=== PATIENT | female | born 2000 | race African-American/Black ===

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

== ENCOUNTER 2021-01-20 01:14 | Emergency (ER) | payer OTHER ==
[~2021-01-20] VITALS: Ht 162.6 cm; Wt 86.3 kg
[2021-01-20] MEDS ORDERED: IV NORMAL SALINE 1000ML BAG 1,000 ML IV SCH (02:15)
[2021-01-20] MEDS ORDERED: ONDANSETRON ODT 4 MG TAB.RAPDIS. PO ONE (03:00)
[2021-01-20] MEDS ORDERED: ONDA4TAB7 PO (03:02)
--- NOTE | 2021-01-20 03:03 | PHYS DOC ---
Past Medical History Past Medical History: No Pertinent History Additional Past Medical Histor: hernia, ADHD Past Surgical History: No Surgical History Additional Past Surgical Histo: tubes in ear, HERNIA REPAIR, ADDENOIDS REMOVED Smoking Status: Never Smoker Alcohol Use: None Drug Use: None Adult General Chief Complaint Chief Complaint: ABDOMINAL PAIN HPI HPI Patient is a 20 year old female with no significant past medical history presenting to emergency department for new onset of abdominal pain and vomiting. Patient states she woke up this morning and had 4 episodes of vomiting nonbloody nonbilious that occurred within a 2-hour. Patient states that after this she started having improvement was able to drink some but presenting the emergency department today because she had worsening sensation of generalized abdominal pain and aching. Denies any fevers, chills, diarrhea, chest pain or shortness of breath. Review of Systems Review of Systems Constitutional: Denies fever or chills [] Eyes: Denies change in visual acuity, redness, or eye pain [] HENT: Denies nasal congestion or sore throat [] Respiratory: Denies cough or shortness of breath [] Cardiovascular: No additional information not addressed in HPI [] GI: Denies abdominal pain, nausea, vomiting, bloody stools or diarrhea [] : Denies dysuria or hematuria [] Musculoskeletal: Denies back pain or joint pain [] Integument: Denies rash or skin lesions [] Neurologic: Denies headache, focal weakness or sensory changes [] Endocrine: Denies polyuria or polydipsia [] All other systems were reviewed and found to be within normal limits, except as documented in this note. Current Medications Current Medications Current Medications Medications (Trade) Dose Ordered Sig/Lesli Start Time Stop Time Status Last Admin Dose Admin Ondansetron HCl (Zofran Odt) 4 mg 1X ONCE 01/20/21 03:00 01/20/21 03:01 Sodium Chloride 1,000 ml @ 1,000 mls/hr Q1H 01/20/21 02:15 01/20/21 03:14 Allergies Allergies Allergies Coded Allergies Type Severity Reaction Last Updated Verified No Known Drug Allergies 03/07/14 No Physical Exam Physical Exam Constitutional: Well developed, well nourished, no acute distress, non-toxic appearance. [] HENT: Normocephalic, atraumatic, bilateral external ears normal, oropharynx moist, no oral exudates, nose normal. [] Eyes: PERRLA, EOMI, conjunctiva normal, no discharge. [] Neck: Normal range of motion, no tenderness, supple, no stridor. [] Cardiovascular:Heart rate regular rhythm, no murmur [] Lungs & Thorax: Bilateral breath sounds clear to auscultation [] Abdomen: Bowel sounds normal, soft, no tenderness, no masses, no pulsatile masses. [] Skin: Warm, dry, no erythema, no rash. [] Back: No tenderness, no CVA tenderness. [] Extremities: No tenderness, no cyanosis, no clubbing, ROM intact, no edema. [] Neurologic: Alert and oriented X 3, normal motor function, normal sensory function, no focal deficits noted. [] Psychologic: Affect normal, judgement normal, mood normal. [] Current Patient Data Vital Signs Vital Signs Date Time Temp Pulse Resp B/P (MAP) Pulse Ox O2 Delivery O2 Flow Rate FiO2 01/20/21 01:25 98.2 100 18 127/72 (90) 99 Room Air 98.2 Lab Values Laboratory Tests Test 01/20/21 01:28 POC Urine HCG, Qualitative Hcg negative (Negative) EKG EKG [] Radiology/Procedures Radiology/Procedures [] Course & Med Decision Making Course & Med Decision Making Pertinent Labs and Imaging studies reviewed. (See chart for details) 20F presenting with new onset of nausea and vomiting most consistent with acute gastroenteritis. Attempted to obtain labs with the patient refusing any nee dles, blood draw is only asking for urine test and antinausea medication. No significant tenderness on exam. Urine test negative and patient was given Zofran. Patient is requesting to be discharged Dragon Disclaimer Dragon Disclaimer This electronic medical record was generated, in whole or in part, using a voice recognition dictation system. Departure Departure Impression: Primary Impression: Acute gastroenteritis Disposition: 01 DC HOME SELF CARE/HOMELESS Condition: GOOD Referrals: NO PCP (PCP) Patient Instructions: Nausea and Vomiting Additional Instructions: EMERGENCY DEPARTMENT GENERAL DISCHARGE INSTRUCTIONS Thank you for coming to [facility] Emergency Department (ED) today and trusting us with you care. We trust that you had a positive experience in our Emergency Department. If you wish to speak to the department management, you may call the Director at [phone]. YOUR FOLLOW UP INSTRUCTIONS ARE FOLLOWS: 1. Do you have a private Doctor? If you do not have a private doctor, please ask for a resource list of physicians or clinics that may be able to assist you with follow up care. 2. The Emergency Physicain has interpreted your x-rays. The X-Ray specialist will also review them. If there is a change in the findings, you will be notified in 48 hours when at all possible. 3. A lab test or culture has been done, your results will be reviewed and you will be notified if you need a change in treatment. ADDITIONAL INSTRUCTIONS AND INFORMATION: 1. Your care today has been supervised by a physician who is specially trained in emergency care. Many problems require more than one evaluation for a complete diagnosis and treatment. We recommend that you schedule your follow up appointment as recommended to ensure complete treatment of you illness or injury. If you are unable to obtain follow up care and continue to have a problem, or if your condition worsens, we recommend that you return to the ED. 2. We are not able to safely determine your condition over the phone nor are we able to give sound medical advice over the phone. For these safety reasons, if you call for medical advice we will ask you to come to the ED for further evaluation. 3. If you have any questions regarding these discharge instructions please call the ED at [phone]. SAFETY INFORMATION: In the interest of safety, wellness, and injury prevention; we encourage you to wear your sealbelt, if you smoke; quite smoking, and we encourage family to use a protective helmet for bicycling and other sporting events that present an increased risk for head injury. IF YOUR SYMPTOMS WORSEN OR NEW SYMPTOMS DEVELOP, OR YOU HAVE CONCERNS ABOUT YOUR CONDITION; OR IF YOUR CONDITION WORSENS WHILE YOU ARE WAITING FOR YOUR FOLLOW UP APPOINTMENT; EITHER CONTACT YOUR PRIMARY CARE DOCTOR, THE PHYSICIAN WHOSE NAME AND NUMBER YOU WERE GIVEN, OR RETURN TO THE ED IMMEDIATELY. Scripts Ondansetron Hcl (ZOFRAN) 4 Mg Tablet 1 TAB PO PRN Q6-8HRS for nausea, #12 TAB Prov: NICHOLE RITTER MD 01/20/21 NICHOLE RITTER MD Jan 20, 2021 03:02
[2021-01-20 03:10] VITALS: BP 122/65
== END 2021-01-20 03:10 | disposition home or self-care (01) ==
LOC: ER 01:14
DX: K52.9 Noninfective gastroenteritis and colitis, unspecified (principal); R10.84 Generalized abdominal pain; R11.2 Nausea with vomiting, unspecified; R20.2 Paresthesia of skin; F90.9 Attention-deficit hyperactivity disorder, unspecified type; Z98.890 Other specified postprocedural states
CPT/HCPCS: 81025; 99283

== ENCOUNTER 2021-05-28 01:17 | Emergency (ER) | payer OTHER ==
[~2021-05-28 01:17] MED LIST changes: +ONDA4TAB7 PO
== END 2021-05-28 03:28 | disposition left against medical advice (07) ==
LOC: ER 01:17
DX: O26.891 Other specified pregnancy related conditions, first trimester (principal); R10.32 Left lower quadrant pain; Z3A.01 Less than 8 weeks gestation of pregnancy
CPT/HCPCS: 81025; 99282

== ENCOUNTER → 2021-07-04 | Outpatient (CLI) | payer OTHER ==
[2021-07-04 13:58] LABS: HEMATOCRIT 36.8 % (36.0-47.0); HEMOGLOBIN 12.1 g/dL (12.0-15.5); MEAN CORPUSCULAR HEMOGLOBIN 28 pg (25-35); MEAN CORPUSCULAR HGB CONC 33 g/dL (31-37); MEAN CORPUSCULAR VOLUME 85 fL (79-100); PLATELET COUNT 438 x10^3/uL (140-400); RED BLOOD COUNT 4.34 x10^6/uL (3.50-5.40); RED CELL DISTRIBUTION WIDTH 15.5 % (11.5-14.5)
[2021-07-05 17:10] LABS: RUBELLA IGG ANTIBODY 1.54 index (Immune >0.99)
== END ==
LOC: LAB 13:02
PROVIDERS: ATTEND Obstetrics & Gynecology
DX: Z34.91 Encounter for supervision of normal pregnancy, unspecified, first trimester (principal)
CPT/HCPCS: 81220; 84443; 84702; 85027; 85660; 86592; 86703; 86762; 86787; 86803; 86850; 86900; 86901; 87340

== ENCOUNTER → 2021-07-12 | Outpatient (CLI) | payer OTHER ==
--- NOTE | 2021-07-12 08:54 | RAD ---
EXAM: Obstetrics sonogram. HISTORY: Unsure dates. TECHNIQUE: Sonographic imaging of the pelvis was performed. COMPARISON: None. FINDINGS: Note is made that the name on the worksheet submitted for the exam is incorrect. The exam i s performed on a patient DAWN DEE. The uterus measures 7.0 x 5.3 x 4.7 cm. The uterus is retroverted. There is an intrauterine gestation al sac with pole and yolk sac. The mean sac diameter is 1.5 cm, corresponding with a gestationa l age of 6 weeks and 2 days. The crown-rump length is 2.5 mm, corresponding with a gestational age of 5 weeks and 6 days. The estimated gestational age patient combined measurements is 6 weeks and 1 day and the estimated due date is 03/06/2022. There is cardiac activity with a heart rate of 93 bpm. This is normal for early gestational age. The gestational sac is normal in configuration and location. The yolk sac is normal in size and confi guration. The maternal ovaries are normal in size and demonstrate normal blood flow. There is a 1.7 c m left corpus luteum cyst. There is no pelvic free fluid. IMPRESSION: 1. Single intrauterine fetus with an estimated gestational age based on combined mean sac diameter an d crown-rump length measurements of 6 weeks and 1 day. There is normal early cardiac activity. 2. 1.7 cm left corpus luteum cyst. Electronically signed by: Alda Rae MD (07/12/2021 8:51 AM) [id number]
== END ==
LOC: US 07:08
PROVIDERS: ATTEND Obstetrics & Gynecology
DX: O34.81 Maternal care for other abnormalities of pelvic organs, first trimester (principal); N83.12 Corpus luteum cyst of left ovary; O26.891 Other specified pregnancy related conditions, first trimester; N85.4 Malposition of uterus; Z3A.01 Less than 8 weeks gestation of pregnancy
CPT/HCPCS: 76801

== ENCOUNTER → 2021-10-21 | Outpatient (CLI) | payer OTHER ==
--- NOTE | 2021-10-22 15:26 | RAD ---
OB ultrasound greater than 14 weeks 10/21/2021 Clinical History: survey. Technique: A real-time ultrasound examination of the gravid uterus was performed. Multiple images wer e obtained. Findings: Comparison study is dated 07/12/2021 There is a single living IUP. The fetus is in a breech position. cardiac and somatic activity is seen. The heart rate is 139 beats per minutes. The maternal cervix is closed. It measures 6 cm in length. The placenta is posterior. No abnormality is seen. The amniotic fluid volume is within normal limits. Neither maternal ovary is visualized. The following measurements were obtained: BPD 4.76cm 20 weeks 3 days HC 18.0 cm 20weeks 3 days AC 15.6 cm 20weeks 5 days FL 3.36 cm 20 weeks 4 days The estimated gestational age by ultrasound is 20 weeks 4 days plus or minus a standard deviation of 10 days. The estimated date of delivery by ultrasound is 03/06/2022. Since the previous examination th ere has been appropriate growth. No abnormality is seen. Specifically the stomach, bladder, kidneys, 3 vessel cord and cor d insertion, four-chamber heart, cisterna magna, cerebellum, nose/mouth, spine and extremities are well-visualized and within normal limits. Impression: Single living IUP with an estimated gestational age by ultrasound of 20 weeks4 days +/- a standard deviation of 10 days. Since previous examination has been appropriate interval growth . Electronically signed by: Neel Cordero MD (10/22/2021 3:23 PM) [id number]
== END ==
LOC: US 15:34
PROVIDERS: ATTEND Obstetrics & Gynecology
DX: O09.72 Supervision of high risk pregnancy due to social problems, second trimester (principal); Z3A.20 20 weeks gestation of pregnancy
CPT/HCPCS: 76805

== ENCOUNTER 2021-10-24 02:21 | Observation (INO) | payer OTHER ==
[2021-10-24] MEDS ORDERED: IV RINGERS,LACTATED 1000ML 1,000 ML IV PRN (02:30)
[2021-10-24 02:58] LABS: BILIRUBIN,URINE NEGATIVE (NEG); CLARITY,URINE CLEAR; COLOR,URINE YELLOW; NITRITE,URINE NEGATIVE (NEG); PROTEIN,URINE NEGATIVE (NEG-TRACE); UROBILINOGEN,URINE 0.2 mg/dL (0.2 mg/dL)
[2021-10-24 03:04] LABS: BACTERIA,URINE 0 /HPF (0-FEW); BARBITURATES NEG (NEG); BENZODIAZEPINES NEG (NEG); CANNABINOIDS NEG (NEG); COCAINE NEG (NEG); METHADONE NEG (NEG); OPIATES NEG (NEG); PHENCYCLIDINE NEG (NEG); RBC,URINE OCC /HPF (0-2); WBC,URINE OCC /HPF (0-4)
[2021-10-24 03:05] LABS: AMPHETAMINE/METHAMPHETAMINE NEG (NEG)
[2021-10-24 03:45] LABS: BASO # 0.1 x10^3/uL (0.0-0.2); BASO % 0 % (0-3); EOS # 0.1 x10^3/uL (0.0-0.7); EOS % 0 % (0-3); HEMATOCRIT 34.1 % (36.0-47.0); HEMOGLOBIN 11.3 g/dL (12.0-15.5); LYMPH # 6.5 x10^3/uL (1.0-4.8); LYMPH % 35 % (24-48); MEAN CORPUSCULAR HEMOGLOBIN 27 pg (25-35); MEAN CORPUSCULAR HGB CONC 33 g/dL (31-37); MEAN CORPUSCULAR VOLUME 82 fL (79-100); MONO # 1.2 x10^3/uL (0.0-1.1); MONO % 6 % (0-9); NEUT # 10.8 x10^3/uL (1.8-7.7); NEUT % 58 % (31-73); PLATELET COUNT 503 x10^3/uL (140-400); RED BLOOD COUNT 4.17 x10^6/uL (3.50-5.40); RED CELL DISTRIBUTION WIDTH 14.3 % (11.5-14.5); WHITE BLOOD COUNT 18.6 x10^3/uL (4.0-11.0)
[2021-10-24 04:29] LABS: ALBUMIN 2.9 g/dL (3.4-5.0); ALBUMIN/GLOBULIN RATIO 0.7 (1.0-1.7); CREATININE 0.5 mg/dL (0.6-1.0); GFR 190.3; POTASSIUM 3.6 mmol/L (3.5-5.1); TOTAL BILIRUBIN 0.2 mg/dL (0.2-1.0); TOTAL PROTEIN 7.3 g/dL (6.4-8.2); URIC ACID 3.2 mg/dL (2.6-6.0)
--- NOTE | 2021-10-24 05:29 | NUR ---
[employer] in 384 would not pull up so medication (LR) had to be manually entered with ID band checked and verbal confirmation of right patient.
== END 2021-10-24 05:21 | disposition home or self-care (01) ==
LOC: 3 SO LND 02:21
PROVIDERS: ADMIT Obstetrics & Gynecology; ATTEND Obstetrics & Gynecology
DX: O42.912 Preterm premature rupture of membranes, unspecified as to length of time between rupture and onset of labor, second trimester (principal); Z3A.21 21 weeks gestation of pregnancy; Z79.899 Other long term (current) drug therapy
CPT/HCPCS: 36415; 59025; 80053; 80307; 81001; 83615; 84156; 84550; 85025; G0378; G0379; J7120

== ENCOUNTER 2021-12-06 14:15 | Observation (INO) | payer OTHER ==
[2021-12-06] MEDS ORDERED: IV RINGERS,LACTATED 1000ML 1,000 ML IV PRN (14:30)
[2021-12-06 14:45] LABS: BILIRUBIN,URINE NEGATIVE (NEG); CLARITY,URINE CLEAR; COLOR,URINE YELLOW; NITRITE,URINE NEGATIVE (NEG); PROTEIN,URINE NEGATIVE (NEG-TRACE)
[2021-12-06 15:15] LABS: AMNIO PT NEGATIVE
[2021-12-06 15:36] LABS: BACTERIA,URINE FEW /HPF (0-FEW); RBC,URINE 0 /HPF (0-2); WBC,URINE RARE /HPF (0-4)
== END 2021-12-06 15:56 | disposition home or self-care (01) ==
LOC: 3 SO LND 14:15
PROVIDERS: ADMIT Obstetrics & Gynecology; ATTEND Obstetrics & Gynecology
DX: O42.912 Preterm premature rupture of membranes, unspecified as to length of time between rupture and onset of labor, second trimester (principal); Z3A.27 27 weeks gestation of pregnancy
CPT/HCPCS: 36415; 59025; 81001; 84112; G0378; G0379

== ENCOUNTER 2022-01-19 11:59 | Observation (INO) | payer OTHER ==
[2022-01-19] MEDS ORDERED: IV RINGERS,LACTATED 1000ML 1,000 ML IV SCH (12:45)
[2022-01-19] MEDS ORDERED: IV RINGERS,LACTATED 1000ML 1,000 ML IV ONE (13:15)
[2022-01-19] MEDS ORDERED: hydrOXYzine 25 MG TABLET PO PRN (13:15)
[2022-01-19 13:32] LABS: CALCIUM 8.7 mg/dL (8.5-10.1); CREATININE 0.5 mg/dL (0.6-1.0); GFR 190.3
--- NOTE | 2022-01-19 13:33 | PDOC1 ---
MAXILLOFACIAL PROSTHODONTIST H&P Date of Admission: Date of Admission: Jan 19, 2022 at 11:59 History of Present Illness: [id number] presents with complaints of intermittent lower abdominal/pelvic discomfort/pressure. Denies complications with to date. History of preeclampsia with subsequent IOL @ 37 weeks. Denies history of PTL. No dysuria, urgency, or frequency. No vulvovaginal itching/irritation. No abnormal vaginal discharge. No recent IC. Good movement. On further questioning, pt. reports intermittent mild GONZALEZ, relieved with APAP/rest. Denies visual disturbances, no RUQ pain. Otherwise denies complaints. Past Medical History: Cardiovascular: No pertinent hx, Other (Preeclampsia in prior ) Pulmonary: No pertinent hx GI: No pertinent hx Heme/Onc: No pertinent hx Hepatobiliary: No pertinent hx Psych: No pertinent hx Rheumatologic: No pertinent hx Infectious disease: No pertinent hx ENT: No pertinent hx Renal/: No pertinent hx Endocrine: No pertinent hx Dermatology: No pertinent hx Grav: 2 Past Surgical History: Negative Social History: Smoke: No ALCOHOL: none Allergies: Coded Allergies: No Known Drug Allergies (Unverified , 03/07/14) Physical Exam: PE: GENERAL: No apparent distress. Alert and oriented. HEENT: Head normocephalic, atraumatic. NECK: Supple LUNGS: Clear to auscultation. HEART: RRR, S1, S2 present, pulses intact ABDOMEN: Soft, positive bowel sounds. EXTREMITIES: No cyanosis or edema. NEUROLOGIC: Normal speech, normal tone PSYCHIATRIC: Normal affect, normal mood. SKIN: No ulceration. Assessment & Plan: FHR 135, moderate variability, + accels, no decels. TOCO - irregular mild UC, SVE 1//. Initial pressure mild range, PIH labs pending. BMZ as a pre caution. IV hydrate, PO vistaril, recheck SVE in 2 hours. Anticipate d/c home pending no cervical change. Not presently in active labor. JUDY SMITH CNM Jan 19, 2022 13:33
[2022-01-19 13:35] LABS: BASO % 0 % (0-3); EOS % 0 % (0-3); HEMATOCRIT 31.3 % (36.0-47.0); LYMPH # 4.4 x10^3/uL (1.0-4.8); LYMPH % 30 % (24-48); MEAN CORPUSCULAR HEMOGLOBIN 25 pg (25-35); MEAN CORPUSCULAR HGB CONC 32 g/dL (31-37); MEAN CORPUSCULAR VOLUME 79 fL (79-100); MONO # 0.9 x10^3/uL (0.0-1.1); MONO % 6 % (0-9); NEUT # 9.2 x10^3/uL (1.8-7.7); NEUT % 63 % (31-73); PLATELET COUNT 444 x10^3/uL (140-400); RED BLOOD COUNT 3.98 x10^6/uL (3.50-5.40); RED CELL DISTRIBUTION WIDTH 16.8 % (11.5-14.5); WHITE BLOOD COUNT 14.6 x10^3/uL (4.0-11.0)
[2022-01-19 13:39] LABS: ALBUMIN 2.8 g/dL (3.4-5.0); ALBUMIN/GLOBULIN RATIO 0.7 (1.0-1.7); TOTAL BILIRUBIN 0.3 mg/dL (0.2-1.0); TOTAL PROTEIN 6.7 g/dL (6.4-8.2); URIC ACID 3.8 mg/dL (2.6-6.0)
[2022-01-19] MEDS ORDERED: BETAMET ACET&NA PHOS 30 MG/5 ML VIAL. IM SCH (14:00)
[2022-01-19 14:04] LABS: CREATININE,RANDOM URINE 69.4 mg/dL (Not Establ.)
[2022-01-19] MEDS ORDERED: HYDR50CA PO (15:04)
== END 2022-01-19 16:20 | disposition home or self-care (01) ==
LOC: INTOOBSV 11:59 → 3 SO LND 11:59
PROVIDERS: ADMIT Obstetrics & Gynecology; ATTEND Obstetrics & Gynecology
DX: O62.9 Abnormality of forces of labor, unspecified (principal); O99.891 Other specified diseases and conditions complicating pregnancy; M54.9 Dorsalgia, unspecified; R10.30 Lower abdominal pain, unspecified; R10.2 Pelvic and perineal pain; Z3A.33 33 weeks gestation of pregnancy
CPT/HCPCS: 36415; 59025; 80053; 82570; 83615; 84156; 84550; 85025; 96372; G0378; G0379; J0702; J7120; 96360; 96361

== ENCOUNTER 2022-01-20 15:58 | Observation (INO) | payer OTHER ==
[~2022-01-20 15:58] MED LIST changes: +HYDR50CA PO
[2022-01-20] MEDS ORDERED: IV RINGERS,LACTATED 1000ML 1,000 ML IV SCH (16:15)
[2022-01-20] MEDS ORDERED: BETAMET ACET&NA PHOS 30 MG/5 ML VIAL. IM ONE (16:30)
== END 2022-01-20 16:30 | disposition home or self-care (01) ==
LOC: 3 SO LND 15:58
PROVIDERS: ADMIT Obstetrics & Gynecology; ATTEND Obstetrics & Gynecology
DX: O36.8330 Maternal care for abnormalities of the fetal heart rate or rhythm, third trimester, not applicable or unspecified (principal); Z3A.33 33 weeks gestation of pregnancy
CPT/HCPCS: 59025; 96372; J0702; G0379

== ENCOUNTER 2022-02-12 06:04 | Inpatient (IN) | payer OTHER ==
[~2022-02-12] VITALS: Ht 162.6 cm; Wt 119.0 kg
[2022-02-12] MEDS ORDERED: OXYTOCIN 30 UNIT/500 ML PREMIX 500 ML IV PRN ×3 (06:15→20:00)
[2022-02-12] MEDS ORDERED: 0.9 % SODIUM CHLORIDE 10 ML DISP.SYRIN. IV PRN ×2 (06:15→20:00)
[2022-02-12] MEDS ORDERED: LIDOCAINE 1% PF 30 ML VIAL. INJ PRN (06:15)
[2022-02-12] MEDS ORDERED: TERBUTALINE 1 MG/ML VIAL. SQ PRN (06:15)
[2022-02-12] MEDS ORDERED: ACETAMINOPHEN 325 MG TABLET. PO PRN (06:15)
[2022-02-12 06:25] VITALS: BP 148/67
[2022-02-12] MEDS: IV RINGERS,LACTATED 1000ML 1,000 ML IV SCH ×3 (06:54→17:11)
[2022-02-12 07:11] LABS: BASO # 0.1 x10^3/uL (0.0-0.2); BASO % 0 % (0-3); EOS # 0.1 x10^3/uL (0.0-0.7); EOS % 1 % (0-3); HEMATOCRIT 32.7 % (36.0-47.0); HEMOGLOBIN 10.2 g/dL (12.0-15.5); LYMPH # 4.7 x10^3/uL (1.0-4.8); LYMPH % 32 % (24-48); MEAN CORPUSCULAR HEMOGLOBIN 24 pg (25-35); MEAN CORPUSCULAR HGB CONC 31 g/dL (31-37); MEAN CORPUSCULAR VOLUME 78 fL (79-100); MONO % 7 % (0-9); NEUT # 9.1 x10^3/uL (1.8-7.7); NEUT % 61 % (31-73); PLATELET COUNT 458 x10^3/uL (140-400); RED BLOOD COUNT 4.19 x10^6/uL (3.50-5.40); RED CELL DISTRIBUTION WIDTH 17.1 % (11.5-14.5); WHITE BLOOD COUNT 14.9 x10^3/uL (4.0-11.0)
[2022-02-12 07:25] LABS: ALBUMIN 2.8 g/dL (3.4-5.0); ALBUMIN/GLOBULIN RATIO 0.6 (1.0-1.7); CALCIUM 8.6 mg/dL (8.5-10.1); CREATININE 0.5 mg/dL (0.6-1.0); GFR 190.3; POTASSIUM 3.4 mmol/L (3.5-5.1); TOTAL BILIRUBIN 0.3 mg/dL (0.2-1.0); TOTAL PROTEIN 7.5 g/dL (6.4-8.2); URIC ACID 3.8 mg/dL (2.6-6.0)
[2022-02-12 07:55] LABS: CREATININE,RANDOM URINE 100.8 mg/dL (Not Establ.)
[2022-02-12 08:16] LABS: BACTERIA,URINE 0 /HPF (0-FEW); RBC,URINE 0 /HPF (0-2); WBC,URINE 0 /HPF (0-4)
--- NOTE | 2022-02-12 08:52 | PDOC1 ---
AIR QUALITY TECHNICIAN H&P Date of Admission: Date of Admission: Feb 12, 2022 at 06:04 History of Present Illness: EDC: 03/06/22 LMP: 05/30/21 21y @ 36.6 by L=6 presents for indxn of labor. At the pts initial visit at 5wks she was noted to have a mild BP. The pt has not had any issues with BP since until around 34wks. Her BPs have been mild ever since. On 01/19/22, she presented to L&D. A PIH eval was performed which revealed nml labs and a urine Pr/Cr of 0.218. The pt started on a course of BMTZ during this visit. It is unclear if she has cHTN or GHTN. With her h/o preeclampsia with her first , it was felt to be the safest option to move toward indxn, especially with the pts more frequent HAs. The pt reports having a GONZALEZ last night, but it resolved after Tylenol. She does reports some epigastric pain, but this may be GERD. PMH: Asthma, ADHD PSH: Denies Meds: Vistaril, PNV, Colace All: NKDA OBHx: 38wk (induced for preeclampsia, ?oligo) SH: No tob, no EtOH FH: noncontributory Past Medical History: Cardiovascular: No pertinent hx, Other Pulmonary: No pertinent hx GI: No pertinent hx Heme/Onc: No pertinent hx Hepatobiliary: No pertinent hx Psych: No pertinent hx Rheumatologic: No pertinent hx Infectious disease: No pertinent hx Renal/: No pertinent hx Endocrine: No pertinent hx Social History: ALCOHOL: none Medications: Meds: Current Medications Medications (Trade) Dose Ordered Sig/Lesli Route PRN Reason Start Time Stop Time Status Last Admin Dose Admin Ringer's Solution 1,000 ml @ 125 mls/hr Q8H IV 02/12/22 06:15 02/12/22 06:54 Oxytocin 500 ml @ 0 mls/hr CONT PRN IV SEE I/O RECORD 02/12/22 06:15 02/12/22 07:34 Allergies: Coded Allergies: No Known Drug Allergies (Unverified , 03/07/14) Physical Exam: PE: GENERAL: No apparent distress. Alert and oriented. HEENT: Head normocephalic, atraumatic. NECK: Supple LUNGS: Clear to auscultation. HEART: RRR, S1, S2 present, pulses intact ABDOMEN: Soft, positive bowel sounds. EXTREMITIES: No cyanosis or edema. NEUROLOGIC: Normal speech, normal tone PSYCHIATRIC: Normal affect, normal mood. SKIN: No ulceration. FHT: 140s acels/no decels/mLTV [place]: 8-10 min SVE: 1-2/60/-2 Labs: Laboratory Tests Test 02/12/22 06:20 02/12/22 06:30 Urine Collection Type Unknown Urine Color (Auto) Light yellow Urine Turbidity Clear Urine pH (Auto) 6.0 (<5.0-8.0) Urine Specific [place] 1.015 (1.000-1.030) Urine Protein (Auto) Negative mg/dL (Negative) Urine Glucose (Auto)(UA) Negative mg/dL (Negative) Urine Ketones (Auto) Negative mg/dL (Negative) Urine Blood (Auto) Negative (Negative) Urine Nitrite Negative (Negative) Urine Bilirubin (Auto) Negative (Negative) Urine Urobilinogen (Auto) Normal mg/dL (Normal) Urine Leukocyte Esterase (Auto) Negative (Negative) Urine RBC 0 /HPF (0-2) Urine WBC 0 /HPF (0-4) Urine Squamous Epithelial Cells Few /LPF Urine Bacteria 0 /HPF (0-FEW) Urine Mucus Mod /LPF Urine Random Creatinine 100.8 mg/dL (Not Establ.) Urine Random Total Protein 17.9 mg/dL (Not Establ.) Urine Protein/Creatinine Ratio 178 mg/g (0-200) SARS-CoV-2 Antigen (Rapid) Negative (NEGATIVE) White Blood Count 14.9 x10^3/uL (4.0-11.0) H Red Blood Count 4.19 x10^6/uL (3.50-5.40) Hemoglobin 10.2 g/dL (12.0-15.5) L Hematocrit 32.7 % (36.0-47.0) L Mean Corpuscular Volume 78 fL (79-100) L Mean Corpuscular Hemoglobin 24 pg (25-35) L Mean Corpuscular Hemoglobin Concent 31 g/dL (31-37) Red Cell Distribution Width 17.1 % (11.5-14.5) H Platelet Count 458 x10^3/uL (140-400) H Neutrophils (%) (Auto) 61 % (31-73) Lymphocytes (%) (Auto) 32 % (24-48) Monocytes (%) (Auto) 7 % (0-9) Eosinophils (%) (Auto) 1 % (0-3) Basophils (%) (Auto) 0 % (0-3) Neutrophils # (Auto) 9.1 x10^3/uL (1.8-7.7) H Lymphocytes # (Auto) 4.7 x10^3/uL (1.0-4.8) Monocytes # (Auto) 1.0 x10^3/uL (0.0-1.1) Eosinophils # (Auto) 0.1 x10^3/uL (0.0-0.7) Basophils # (Auto) 0.1 x10^3/uL (0.0-0.2) Sodium Level 136 mmol/L (136-145) Potassium Level 3.4 mmol/L (3.5-5.1) L Chloride Level 104 mmol/L (98-107) Carbon Dioxide Level 20 mmol/L (21-32) L Anion Gap 12 (6-14) Blood Urea Nitrogen 4 mg/dL (7-20) L Creatinine 0.5 mg/dL (0.6-1.0) L Estimated GFR (Cockcroft-Gault) 190.3 BUN/Creatinine Ratio 8 (6-20) Glucose Level 105 mg/dL (70-99) H Uric Acid 3.8 mg/dL (2.6-6.0) Calcium Level 8.6 mg/dL (8.5-10.1) Total Bilirubin 0.3 mg/dL (0.2-1.0) Aspartate Amino Transferase (AST) 10 U/L (15-37) L Alanine Aminotransferase (ALT) 16 U/L (14-59) Alkaline Phosphatase 185 U/L (46-116) H Lactate Dehydrogenase 140 U/L (81-234) Total Protein 7.5 g/dL (6.4-8.2) Albumin 2.8 g/dL (3.4-5.0) L Albumin/Globulin Ratio 0.6 (1.0-1.7) L Treponema pallidum Antibody Nonreactive (Nonreactive) Laboratory Tests 02/12/22 06:30 Laboratory Tests 02/12/22 06:30 Laboratory Tests 02/12/22 06:30 Assessment & Plan: A/P 21y @ 36.6 by L=6 1.) Indxn on Pit 2.) GHTN vs cHTN - increasing HAs over the last month. PIH labs wnl and urine Pr/Cr 0.218 on 01/19/22. Labs repeated this am and remain nml. GONZALEZ last night and some epigastric pain this am. Will not Mag at this time, but may if BPs worsen 3.) H/o preeclampsia 4.) Asthma 5.) Anemia 6.) ADHD - unsure about this dx 7.) Etsefanía NI 8.) Panorama - low risk 9.) Never got GTT 10.) TDAP given 12/27/21 11.) Fetus cat I FHT, s/p BMTZ on 01/19, 01/20 12.) Boy - Tanya or Hannah 13.) GBS neg ROCIO CHILDRESS MD Feb 12, 2022 08:52
[2022-02-12] MEDS ORDERED: FAMOTIDINE 20 MG/2 ML VIAL IVP SCH (09:00)
[2022-02-12] MEDS ORDERED: PNV1TABL25 PO (09:10)
[2022-02-12] MEDS: BUTORPHANOL 2 MG/ML VIAL. IVP PRN ×4 (13:05→18:16)
[2022-02-12] MEDS ORDERED: ROPIVacaine 0.2% PF 10 ML VIAL. ONE ×2 (17:24→18:00)
[2022-02-12] MEDS ORDERED: L&D EPIDURAL SYRINGE 50 ML ONE (17:24)
[2022-02-12] MEDS ORDERED: fentaNYL PF VIAL 100 MCG/2 ML VIAL ONE (17:24)
[2022-02-12] MEDS ORDERED: IV RINGERS,LACTATED 1000ML 1,000 ML IV ONE (17:30)
[2022-02-12] MEDS ORDERED: ePHEDrine PF IN SALINE 50 MG/10 ML SYRINGE. IV PRN (17:45)
[2022-02-12] MEDS ORDERED: L&D EPIDURAL SYRINGE 50 ML EPID PRN (17:45)
[2022-02-12] MEDS ORDERED: NALOXONE 0.4 MG/ML VIAL. IV PRN (17:45)
[2022-02-12] MEDS ORDERED: fentaNYL PF VIAL 100 MCG/2 ML VIAL EPID ONE (17:45)
[2022-02-12] MEDS ORDERED: ONDANSETRON PF 4 MG/2 ML VIAL. IV PRN (17:45)
[2022-02-12] MEDS ORDERED: L&D EPIDURAL 50 ML SYRINGE. ONE (18:00)
--- NOTE | 2022-02-12 18:31 | PDOC ---
ICE CREAM MAN PROGRESS NOTE Date of Service: DATE: 02/12/22 TIME: 18:30 Subjective: Pt with increased pain. The pt was planning on trying an epidural but what was when anesthesia arrived the pt became very scared. She recalls at when they attempted 4 times. She states that she could not walk for a wk after it was placed. Explained that this was uncommon and it would be worth it to give it a chance, b/c we will need to go up on the Pitocin. She has not made significant change manager the last few hours. The pt wonders what her options are for pain. Explained beyond IV meds and Epidural we had local (pudundal) but that was good near the time of delivery. Again discussed attempting an epidural. The pt would like to get another dose of stadol and may think about trying an epidural again. It has been difficult to place the pt on the monitor so discussed FSE/IUPC. The pt states that she would prefer not to b/c with her last delivery the FSE left a nick on her sons forehead. Objective: Vital Signs: Vital Signs Date Time Temp Pulse Resp B/P (MAP) Pulse Ox O2 Delivery O2 Flow Rate FiO2 02/12/22 06:25 98.5 118 18 148/67 (94) Room Air 98.5 Vital Signs Date Time Temp Pulse Resp B/P (MAP) Pulse Ox O2 Delivery O2 Flow Rate FiO2 02/12/22 17:36 Room Air 02/12/22 15:34 18 02/12/22 06:25 98.5 118 148/67 (94) 98.5 Labs: Laboratory Tests Test 02/12/22 06:20 02/12/22 06:30 Urine Collection Type Unknown Urine Color (Auto) Light yellow Urine Turbidity Clear Urine pH (Auto) 6.0 (<5.0-8.0) Urine Specific [place] 1.015 (1.000-1.030) Urine Protein (Auto) Negative mg/dL (Negative) Urine Glucose (Auto)(UA) Negative mg/dL (Negative) Urine Ketones (Auto) Negative mg/dL (Negative) Urine Blood (Auto) Negative (Negative) Urine Nitrite Negative (Negative) Urine Bilirubin (Auto) Negative (Negative) Urine Urobilinogen (Auto) Normal mg/dL (Normal) Urine Leukocyte Esterase (Auto) Negative (Negative) Urine RBC 0 /HPF (0-2) Urine WBC 0 /HPF (0-4) Urine Squamous Epithelial Cells Few /LPF Urine Bacteria 0 /HPF (0-FEW) Urine Mucus Mod /LPF Urine Random Creatinine 100.8 mg/dL (Not Establ.) Urine Random Total Protein 17.9 mg/dL (Not Establ.) Urine Protein/Creatinine Ratio 178 mg/g (0-200) SARS-CoV-2 Antigen (Rapid) Negative (NEGATIVE) White Blood Count 14.9 x10^3/uL (4.0-11.0) H Red Blood Count 4.19 x10^6/uL (3.50-5.40) Hemoglobin 10.2 g/dL (12.0-15.5) L Hematocrit 32.7 % (36.0-47.0) L Mean Corpuscular Volume 78 fL (79-100) L Mean Corpuscular Hemoglobin 24 pg (25-35) L Mean Corpuscular Hemoglobin Concent 31 g/dL (31-37) Red Cell Distribution Width 17.1 % (11.5-14.5) H Platelet Count 458 x10^3/uL (140-400) H Neutrophils (%) (Auto) 61 % (31-73) Lymphocytes (%) (Auto) 32 % (24-48) Monocytes (%) (Auto) 7 % (0-9) Eosinophils (%) (Auto) 1 % (0-3) Basophils (%) (Auto) 0 % (0-3) Neutrophils # (Auto) 9.1 x10^3/uL (1.8-7.7) H Lymphocytes # (Auto) 4.7 x10^3/uL (1.0-4.8) Monocytes # (Auto) 1.0 x10^3/uL (0.0-1.1) Eosinophils # (Auto) 0.1 x10^3/uL (0.0-0.7) Basophils # (Auto) 0.1 x10^3/uL (0.0-0.2) Sodium Level 136 mmol/L (136-145) Potassium Level 3.4 mmol/L (3.5-5.1) L Chloride Level 104 mmol/L (98-107) Carbon Dioxide Level 20 mmol/L (21-32) L Anion Gap 12 (6-14) Blood Urea Nitrogen 4 mg/dL (7-20) L Creatinine 0.5 mg/dL (0.6-1.0) L Estimated GFR (Cockcroft-Gault) 190.3 BUN/Creatinine Ratio 8 (6-20) Glucose Level 105 mg/dL (70-99) H Uric Acid 3.8 mg/dL (2.6-6.0) Calcium Level 8.6 mg/dL (8.5-10.1) Total Bilirubin 0.3 mg/dL (0.2-1.0) Aspartate Amino Transferase (AST) 10 U/L (15-37) L Alanine Aminotransferase (ALT) 16 U/L (14-59) Alkaline Phosphatase 185 U/L (46-116) H Lactate Dehydrogenase 140 U/L (81-234) Total Protein 7.5 g/dL (6.4-8.2) Albumin 2.8 g/dL (3.4-5.0) L Albumin/Globulin Ratio 0.6 (1.0-1.7) L Treponema pallidum Antibody Nonreactive (Nonreactive) Laboratory Tests 02/12/22 06:30 Laboratory Tests 02/12/22 06:30 Laboratory Tests 02/12/22 06:30 Physical Exam: GENERAL: No apparent distress. Alert and oriented. HEENT: Head normocephalic, atraumatic. NECK: Supple LUNGS: Clear to auscultation. HEART: RRR, S1, S2 present, pulses intact ABDOMEN: Soft, positive bowel sounds. EXTREMITIES: No cyanosis or edema. NEUROLOGIC: Normal speech, normal tone PSYCHIATRIC: Normal affect, normal mood. SKIN: No ulceration. FHT: 130s +acels/a few variable decels/mLTV [place]: 2-3 min SVE: /-2 Assessment & Plan: A/P 21y @ 36.6 by L=6 1.) Indxn on Pit 2.) GHTN vs cHTN BPs nml to mild. One severe that resolved spontaneously. PIH labs and urine Pr/Cr wnl. No s/s of preeclampsia 3.) H/o preeclampsia 4.) Asthma 5.) Anemia 6.) ADHD - unsure about this dx 7.) Estefanía NI 8.) Panorama - low risk 9.) Never got GTT 10.) TDAP given 12/27/21 11.) Fetus cat I FHT, s/p BMTZ on 01/19, 01/20 12.) Boy - Tanya or Hannah 13.) GBS neg ROCIO CHILDRESS MD Feb 12, 2022 18:31
[2022-02-12] MEDS ORDERED: BUPIVACAINE MPF 0.25% 30 ML VIAL. ONE (19:11)
--- NOTE | 2022-02-12 19:47 | PDOC4 ---
VAGINAL DELIVERY DATE DATE: 02/12/22 TIME: 19:47 TIME Patient delivered a viable male over intact perineum at 1932. Wt 6 lb 0 oz. Apgars 8/9. Placenta delivered spontaneously, intact with 3VC. No lacerations noted. Good hemostasis noted. 20 U of Pit given with IVF. EBL 300 cc. WEIGHT Weight [ ] ROCIO CHILDRESS MD Feb 12, 2022 19:47
[2022-02-12] MEDS ORDERED: diphenhydrAMINE HCL 25 MG CAPSULE PO PRN (20:00)
[2022-02-12] MEDS ORDERED: MMR per PROTOCOL. MC PRN (20:00)
[2022-02-12] MEDS ORDERED: PHENYLEPH/MINERAL OIL/PETROLAT RECTAL OINTMENT TUBE. RC PRN (20:00)
[2022-02-12] MEDS ORDERED: BENZOCAINE 20% TOPICAL AEROSOL SPRAY 57GM CAN. TP PRN (20:00)
[2022-02-12] MEDS ORDERED: oxyCODONE/APAP 5/325 1 TAB TABLET PO PRN (20:00)
[2022-02-12] MEDS ORDERED: TDaP (BOOSTRIX) per PROTOCOL. MC PRN (20:00)
[2022-02-12] MEDS ORDERED: SIMETHICONE 80 MG TAB.CHEW PO PRN (20:00)
[2022-02-12] MEDS ORDERED: MAG HYDROX/ALUMINUM HYD/SIMETH 30 ML ORAL.SUSP PO PRN (20:00)
[2022-02-12] MEDS ORDERED: HYDROCORTISONE 1% TOPICAL OINTMENT 30GM TUBE. TP PRN (20:00)
[2022-02-12] MEDS ORDERED: ZOLPIDEM 5 MG TABLET. PO PRN (20:00)
[2022-02-12] MEDS ORDERED: MAGNESIUM HYDROXIDE 2,400 MG/30 ML ORAL.SUSP. PO PRN (20:00)
[2022-02-12] MEDS: IBUPROFEN 400 MG TABLET. PO PRN (20:09)
[2022-02-12 22:30] VITALS: BP 124/68
[2022-02-12 23:30] VITALS: BP 116/68
[2022-02-13 03:30] VITALS: BP 118/66
[2022-02-13] MEDS: IBUPROFEN 400 MG TABLET. PO PRN ×2 (05:38→14:49)
[2022-02-13 08:02] LABS: HEMATOCRIT 31.5 % (36.0-47.0); RED BLOOD COUNT 4.02 x10^6/uL (3.50-5.40); RED CELL DISTRIBUTION WIDTH 17.3 % (11.5-14.5); WHITE BLOOD COUNT 14.7 x10^3/uL (4.0-11.0)
[2022-02-13] MEDS: FERROUS SULFATE 325 MG TABLET. PO SCH ×2 (08:48→17:28)
[2022-02-13] MEDS: DOCUSATE SODIUM 100 MG CAPSULE. PO PRN ×2 (08:48→17:28)
[2022-02-13] MEDS: PRENATAL MULTIVITAMIN TABLET. PO SCH (08:48)
[2022-02-13 09:00] VITALS: BP 123/71
[2022-02-13] MEDS: ACETAMINOPHEN 325 MG TABLET. PO PRN ×2 (11:40→18:45)
[2022-02-13 11:50] VITALS: BP 113/75
--- NOTE | 2022-02-13 15:53 | PDOC ---
JUDY SMITH Ortega [facility] 02/13/22 1553: BOARDING MACHINE OPERATOR PROGRESS NOTE Date of Service: DATE: 02/13/22 TIME: 15:52 Subjective: Doing well. Pain well managed with PO meds. Tolerates activity, diet, and voiding without difficulty. Objective: Objective: FF@U, U/1, scant lochia. Vital Signs: Vital Signs Date Time Temp Pulse Resp B/P (MAP) Pulse Ox O2 Delivery O2 Flow Rate FiO2 02/12/22 13:05 20 Room Air 02/12/22 22:30 97.3 116 124/68 (86) 99 97.3 Vital Signs Date Time Temp Pulse Resp B/P (MAP) Pulse Ox O2 Delivery O2 Flow Rate FiO2 02/13/22 11:50 97.6 96 16 113/75 (88) Room Air 97.6 02/13/22 09:00 99 Labs: Laboratory Tests Test 02/13/22 07:50 White Blood Count 14.7 x10^3/uL (4.0-11.0) H Red Blood Count 4.02 x10^6/uL (3.50-5.40) Hemoglobin 10.0 g/dL (12.0-15.5) L Hematocrit 31.5 % (36.0-47.0) L Mean Corpuscular Volume 78 fL (79-100) L Mean Corpuscular Hemoglobin 25 pg (25-35) Mean Corpuscular Hemoglobin Concent 32 g/dL (31-37) Red Cell Distribution Width 17.3 % (11.5-14.5) H Platelet Count 424 x10^3/uL (140-400) H Laboratory Tests 02/13/22 07:50 Laboratory Tests 02/13/22 07:50 Physical Exam: GENERAL: No apparent distress. Alert and oriented. HEENT: Head normocephalic, atraumatic. NECK: Supple LUNGS: Clear to auscultation. HEART: RRR, S1, S2 present, pulses intact ABDOMEN: Soft, positive bowel sounds. EXTREMITIES: No cyanosis or edema. NEUROLOGIC: Normal speech, normal tone PSYCHIATRIC: Normal affect, normal mood. SKIN: No ulceration. Assessment & Plan: PPD#1 routine PP course, anticipate d/c home tomorrow. ROCIO CHILDRESS MD 02/14/22 1105: BOARDING MACHINE OPERATOR PROGRESS NOTE Subjective: Denies GONZALEZ, changes in vision or abd pain Assessment & Plan: A/P 21y PPD #1 s/p 1.) PP doing well 2.) Severe GHTN vs cHTN a few severe BPs during labor. None requiring intervention. BPs nml since delivery. PIH labs and urine Pr/Cr wnl. No s/s of preeclampsia 3.) H/o preeclampsia 4.) Asthma 5.) Anemia Hgb 10.2 -> 10.0 6.) ADHD - unsure about this dx 7.) Estefanía NI 8.) TDAP given 12/27/21 JUDY SMITH CNM Feb 13, 2022 15:53 ROCIO CHILDRESS MD Feb 14, 2022 11:05
[2022-02-13 16:15] VITALS: BP 125/75
[2022-02-13 20:00] VITALS: BP 106/65
[2022-02-14] VITALS: BP 112/68
[2022-02-14] MEDS: IBUPROFEN 400 MG TABLET. PO PRN ×2 (01:33→10:19)
[2022-02-14 06:15] VITALS: BP 118/72
[2022-02-14] MEDS: FERROUS SULFATE 325 MG TABLET. PO SCH (08:52)
[2022-02-14] MEDS: DOCUSATE SODIUM 100 MG CAPSULE. PO PRN (08:52)
[2022-02-14] MEDS: PRENATAL MULTIVITAMIN TABLET. PO SCH (08:52)
[2022-02-14] MEDS: ACETAMINOPHEN 325 MG TABLET. PO PRN (09:00)
--- NOTE | 2022-02-14 10:07 | PDOC ---
JUDY SMITH CNM 02/14/22 1007: COTTONSEED MEAT PRESSER PROGRESS NOTE Date of Service: DATE: 02/14/22 TIME: 09:56 Subjective: Doing well. Pain well managed. Tolerates diet, activity, and voiding without difficulty. Otherwise denies complaints. Objective: Vital Signs: Vital Signs Date Time Temp Pulse Resp B/P (MAP) Pulse Ox O2 Delivery O2 Flow Rate FiO2 02/13/22 09:00 98.1 91 18 123/71 (88) 99 Room Air 98.1 Vital Signs Date Time Temp Pulse Resp B/P (MAP) Pulse Ox O2 Delivery O2 Flow Rate FiO2 02/14/22 07:30 Room Air 02/14/22 06:15 97.4 88 20 118/72 (87) 99 97.4 Physical Exam: GENERAL: No apparent distress. Alert and oriented. HEENT: Head normocephalic, atraumatic. NECK: Supple LUNGS: Clear to auscultation. HEART: RRR, S1, S2 present, pulses intact ABDOMEN: Soft, positive bowel sounds. EXTREMITIES: No cyanosis or edema. NEUROLOGIC: Normal speech, normal tone PSYCHIATRIC: Normal affect, normal mood. SKIN: No ulceration. Assessment & Plan: Discharge instructions, precautions, and warning signs reviewed. PIH precautions reviewed. f/u 6 weeks for routine PP appt per Dr. Childress. ROCIO CHILDRESS MD 02/14/22 1105: COTTONSEED MEAT PRESSER PROGRESS NOTE Subjective: Denies GONZALEZ, changes in vision or abd pain Assessment & Plan: A/P 21y PPD #2 s/p 1.) PP doing well 2.) Severe GHTN vs cHTN a few severe BPs during labor. None requiring intervention. BPs nml since delivery. PIH labs and urine Pr/Cr wnl. No s/s of preeclampsia 3.) H/o preeclampsia 4.) Asthma 5.) Anemia Hgb 10.2 -> 10.0 6.) ADHD - unsure about this dx 7.) Estefanía NI 8.) TDAP given 12/27/21 UJDY SMITH CNM Feb 14, 2022 10:07 ROCIO CHILDRESS MD Feb 14, 2022 11:05
[2022-02-14] MEDS ORDERED: IBUP-1027 PO (10:14)
[2022-02-14 14:15] VITALS: BP 133/85
--- NOTE | 2022-02-14 14:15 | NUR ---
Pt. ambulates to personal vehicle, FOB carries NB and places NB in a secure carseat. Mother and NB VSS and in stable condition.
--- NOTE | 2022-02-17 18:06 | PATHOLOGY ---
[facility] Accession Number: [id number] . 01 Material submitted: . placenta - PLACENTA AND CORD . 01 Clinical history: . RIVERA WITH GESTATIONAL HYPERTENSION LIVE MALE GHTN, ASTHMA, ANXIETY . 02 Diagnosis: 320 gram late placenta of an estimated 36 weeks 6 days gestation with attached membranes and umbilical cord and separate segment of umbilical cord: - Small for estimated gestational age placenta (approximate 5th percentile). - Circummarginate placenta. - Eccentric insertion of umbilical cord. LBQ 02/17/2022 1609 Local . 02 Comment: There is no evidence of an acute chorioamnionitis or villitis. There are no infarcts. (JPM/db; 02/17/2022) . 02 Electronically signed: . Brock Davila MD, Pathologist NPI- [id number] . 01 Gross description: . Fixative: Formalin Labeled: Placenta and cord Specimen received: Rivera placenta with attached membranes and attached and detached segments of umbilical cord Dimensions: 15.5 x 15.1 x 3.5 cm membranes appearance: Complete, jimenez-pink, transparent and glistening membrane insertion: 90% circummarginate and 10% marginal Umbilical cord: 39.5 cm in length, 1.2-1.5 cm in diameter Umbilical cord insertion: Eccentric, 3.8 cm from the closest placental disc edge Number of umbilical vessels: 3 Umbilical cord appearance: Jimenez-white, diffusely congested, displaying a 1-3 coils per 10 cm segment Trimmed placental weight: 320 g surface: Blue-morales, displaying a normal arborizing vasculature pattern, and a minimal amount of subchorionic fibrin deposition Maternal surface: Complete, red-brown, displaying a minimal amount of surface calcifications Parenchyma: Red, congested, devoid of discrete masses or lesions . Job Training Supervisor sections are submitted as follows: A1 proximal and distal umbilical cord A2 membranes, rolled A3 commercial sales representative peripheral placenta A4 commercial sales representative central placenta (JGG; 02/14/2022) JGG/EktaGG 02/14/2022 1815 Local . 02 Pathologist provided ICD-10: Z3A.36, Z37.0 . 02 CPT . 153606 Specimen Comment: A courtesy copy of this report has been sent to [phone] Specimen Comment: Report sent to Performed at: 01 [facility] [address] [id number] MD Andrew Colvin MD Phone: [phone] Performed at: 02 [facility] [address] [place] [id number] MD Brock Davila MD Phone: [phone]
== END 2022-02-14 14:15 | disposition home or self-care (01) | DRG 807 ==
LOC: 3 SO LND 06:04 → OBSVTOIN 19:47 → 3 SO LND 22:30
PROVIDERS: ADMIT Obstetrics & Gynecology; ATTEND Obstetrics & Gynecology
PROC: 10E0XZZ Delivery of Products of Conception, External Approach (ICD-10-PCS; principal; 2022-02-12)
DX: O10.92 Unspecified pre-existing hypertension complicating childbirth (principal); Z37.0 Single live birth; J45.909 Unspecified asthma, uncomplicated; O99.52 Diseases of the respiratory system complicating childbirth; Z3A.36 36 weeks gestation of pregnancy; F90.9 Attention-deficit hyperactivity disorder, unspecified type; Z20.822 Contact with and (suspected) exposure to COVID-19; O99.02 Anemia complicating childbirth; D64.9 Anemia, unspecified; O99.344 Other mental disorders complicating childbirth
CPT/HCPCS: 36415; 80053; 81001; 82570; 83615; 84156; 84550; 85025; 85027; 86592; 86850; 86900; 86901; 87426; A6258; C1755; G0378; G0379; J0595; J2590; J2795; J3010; J3490; J7120; U0003